=== PATIENT | female | born 1940 | race Caucasian/White ===

== ENCOUNTER → 2016-11-10 | Outpatient (CLI) | payer MEDICARE, OTHER ==
[~2016-11-10] MED LIST: ACIPHEX20 MG; ACTONEL PO; ADVAIR INH; ALDACTAZIDE; ALDACTAZIDE 25/1 TA1 PO; ALDACTAZIDE PO; ALDACTONE; ALDACTONE25 MG PO; ASPIRIN; ASPIRIN81 M1 PO; ASPIRIN81 M2 PO; ATENOLOL; BONIVA150 MG PO; CALCIUM 500 + D1 TAB; CALCIUM 5001 TAB PO; CALCIUM 600 +1 EAC5 PO; CARAFATE PO; DIAZEPAM; DIAZEPAM PO; LEVOTHROID88 MCG PO; LEVOTHYROXINE88 MCG PO; MIACALCIN4 ML; MULTI-DAY VITA1 EACH; MULTI-VITAMIN1 TAB; MULTIVITAMIN PO; NATURAL VITA400 UNI3 PO; NEXIUM PO; OS-CAL 500 + D500 MG PO; OYSTER CALCIUM500 MG PO; PRINIVIL20 M1 PO; PROTONIX PO; SYNTHROID; SYNTHROID88 MCG PO; TENORMIN50 MG PO; TRAMADOL HCL50 M1 PO; TRAMADOL HCL50 M2 PO; VALIUM10 MG PO; VIT E PO; VITAMIN D1000 UNI1 PO; VITAMIN D1000 UNIT PO; VITAMIN E15 U/0.3 M; VITAMIN E400 UNI1 PO; VYTORIN 10-40 M1 TAB PO; VYTORIN 10/40 T1 TAB; ZETIA PO
--- NOTE | ~2016-11-10 | MY10 ---
[facility] A Service of [facility] RADIOLOGY TEXT RESULTS PATIENT: GEOFFREY LYN LOCATION: [facility] : 36 UNIT #: [id number] AGE: [address]: Dahiana Antunez MD SEX: F ORDER DR: [id number] [facility] [address] [place], [place] [address] [id number] O MR#: [id number] Acc #: [id number] NAME: GEOFFREY LYN. : 1940 SEX: F STUDY DATE/TIME: 11/10/2016 8:49 UNIT: [facility] ROOM: STUDY DESCRIPTION: MY Mammogram Screen Uni Dig Rt Attending Physician: Dahiana Antunez M.D. Ordering Physician: Dahiana Antunez M.D. Primary Care Physician: Dahiana Antunez M.D. MEDICAL IMAGING REPORT This report is preliminary unless electronic signature is present EXAM Right screening mammogram, 11/10 INDICATION History of left mastectomy for breast cancer in 1989. No current complaints. FINDINGS Digital CC and MLO views of the right breast were obtained. Study is reviewed with an FDA-approved CAD device. Comparison is made with 11/09/2015, 09/21/2014, 09/04/2013, and 09/02/2012. Breast parenchyma shows scattered fibroglandular densities. No new masses or suspicious microcalcifications are seen. There is a stable benign nodule in the central right breast. IMPRESSION Benign mammogram. Followup in 1 year recommended. Patients over the age of 40 are entered into a reminder system with target due date for the next mammogram. A result letter will also be sent to the patient. BIRADS: 2 Benign Finding Dictated by... Abram Godlberg Jr., M.D. THIS IS AN ELECTRONICALLY VERIFIED REPORT Abram Goldberg Jr., M.D. at 11/10/2016 4:47 PM EVER/melissa TD: 11/10/2016 10:56 [facility] A Service of [facility] & [facility] RADIOLOGY TEXT RESULTS PATIENT: GEOFFREY LYN LOCATION: [facility] ACC #: [id number] : 36 UNIT #: [id number] AGE: [address]: Dahiana Antunez MD SEX: F ORDER DR: JOB #: [id number] MEDICAL IMAGING REPORT Page 1 of 1 COPY
== END | disposition home or self-care (01) ==
LOC: CMAM 08:08
DX: Z12.31 Encounter for screening mammogram for malignant neoplasm of breast (principal); Z85.3 Personal history of malignant neoplasm of breast; Z90.12 Acquired absence of left breast and nipple
CPT/HCPCS: G0202

== ENCOUNTER 2016-11-26 12:17 | Emergency (ER) | payer MEDICARE, OTHER ==
--- NOTE | ~2016-11-26 | EKG ---
PATIENT: GEOFFREY LYN UNIT #: [id number] Ventricular Rate: 86 BPM Atrial Rate: 86 BPM P-R Interval: 162 ms QRS Duration: 92 ms Q-T Interval: 392 ms QTC Calculation(Bezet): 469 ms P [place]: 24 degrees Calculated R [place]: 5 degrees Calculated T [place]: 36 degrees Diagnosis Line: Normal sinus rhythm Diagnosis Line: Normal ECG Diagnosis Line: When compared with ECG of 26-SEP-2012 17:28, Diagnosis Line: QT has lengthened Diagnosis Line: Confirmed by LAUREANO PARMAR MD ([id number]) on 11/29/2016 Diagnosis Line: 9:36:59 AM INTERPRETING MD: AGATA ISIDRO
--- NOTE | ~2016-11-26 | CR72 ---
[facility] A Service of [facility] & [facility] RADIOLOGY TEXT RESULTS PATIENT: GEOFFREY LYN LOCATION: SED : 36 UNIT #: [id number] AGE: [address]: Jarret Adams MD SEX: F ORDER DR: [id number] [place] [id number] E MR#: [id number] Acc #: [id number] NAME: GEOFFREY LYN : 1940 SEX: F STUDY DATE/TIME: 11/26/2016 13:05 UNIT: SED ROOM: STUDY DESCRIPTION: CR Chest Single View Portable Attending Physician: Jarret Adams M.D. Ordering Physician: Jarret Adams M.D. Primary Care Physician: Dahiana Antunez M.D. MEDICAL IMAGING REPORT This report is preliminary unless electronic signature is present. EXAM Portable chest 11/26/2016 HISTORY 76-year-old female with chest pain beginning today. COMPARISON Chest 09/26/2012 FINDINGS Frontal chest demonstrates clear lungs. No pleural effusion or pneumothorax. Heart size and mediastinum are within normal limits. Pulmonary vasculature unremarkable. IMPRESSION No acute cardiopulmonary findings. Dictated by... Thaddeus Brandon M.D. THIS IS AN ELECTRONICALLY VERIFIED REPORT Thaddeus Brandon M.D. at 11/27/2016 4:47 PM GURDEEP/ximena TD: 11/26/2016 15:51 JOB #: [id number] MEDICAL IMAGING REPORT Page 1 of 1
--- NOTE | ~2016-11-26 | CT2 ---
[facility] A Service of [facility] RADIOLOGY TEXT RESULTS PATIENT: GEOFFREY LYN LOCATION: SED : 36 UNIT #: [id number] AGE: [address]: Jarret Adams MD SEX: F ORDER DR: [id number] [address] [address] [id number] E MR#: [id number] Acc #: [id number] NAME: GEOFFREY LYN : 1940 SEX: F STUDY DATE/TIME: 11/26/2016 13:04 UNIT: SED ROOM: STUDY DESCRIPTION: CT Abd and Pelv W Cont Attending Physician: Jarret Adams M.D. Ordering Physician: Jarret Adams M.D. Primary Care Physician: Dahiana Antunez M.D. MEDICAL IMAGING REPORT This report is preliminary unless electronic signature is present. EXAM CT abdomen and pelvis with contrast 11/26/2016 HISTORY 76-year-old female with abdominal pain, nausea, and vomiting beginning today. COMPARISON None TECHNIQUE Helical scan performed through the abdomen and pelvis following administration of IV contrast. Coronal and sagittal reformatted images. This CT exam was performed with one or more of the following radiation dose reduction techniques: automatic exposure control, adjustment of mA and/or kV according to patient size, and iterative reconstruction. FINDINGS Visualized lung bases are unremarkable. Pmermaah-tu-ceasv hiatal hernia. The liver, spleen, pancreas, and left adrenal gland are within normal limits. There is a 1.9 cm right adrenal myelolipoma. Cholelithiasis is noted. Kidneys are unremarkable. Abdominal aorta normal in course and caliber without dissection. Small bowel is unremarkable without obstruction. Appendix surgically absent. Colon unremarkable. Uncomplicated sigmoid colonic diverticulosis. No free fluid or free air. Urinary bladder, uterus, and adnexa are unremarkable. No free pelvic fluid. No acute bony abnormality. Advanced right hip degenerative change. IMPRESSION [facility] A Service of [facility] RADIOLOGY TEXT RESULTS PATIENT: GEOFFREY LYN LOCATION: SED : 36 UNIT #: [id number] AGE: [address]: Jarret Adams MD SEX: F ORDER DR: 1. Cholelithiasis. 2. Status post appendectomy. 3. Iilzgscc-xq-dxdul hiatal hernia. 4. 1.9-cm right adrenal myelolipoma. 5. Uncomplicated sigmoid colonic diverticulosis. Dictated by... Thaddeus Brandon M.D. THIS IS AN ELECTRONICALLY VERIFIED REPORT Thaddeus Brandon M.D. at 11/27/2016 4:47 PM Mckayla TD: 11/26/2016 15:56 JOB #: [id number] MEDICAL IMAGING REPORT Page 1 of 1
[~2016-11-26 12:17] MED LIST changes: -ASPIRIN81 M2 PO; -CALCIUM 600 +1 EAC5 PO; -CARAFATE PO; -LEVOTHYROXINE88 MCG PO; -MULTI-DAY VITA1 EACH; -NATURAL VITA400 UNI3 PO; -OS-CAL 500 + D500 MG PO; -PRINIVIL20 M1 PO; -PROTONIX PO; -TENORMIN50 MG PO; -TRAMADOL HCL50 M1 PO; -VALIUM10 MG PO
[2016-11-26 12:33] LABS: BASOPHIL# 0.1 X10e3 (0-0.3); BASOPHIL% 0.7 % (0-2.5); EOSINOPHIL% 0.1 % (0.0-7.0); HEMATOCRIT 45.2 % (35.0-45.0); LYMPHOCYTE% 10.1 % (17.0-45.0); MEAN CELL VOLUME 89.7 FL (83-96); MEAN CORPUSCULAR HEMOGLOBIN 29.8 PG (28-34); MEAN CORPUSCULAR HGB CONC 33.2 g/dL (30-36); MEAN PLATELET VOLUME 8.1 FL (6.5-11.5); MONOCYTE# 0.3 X10e3 (0-1.0); MONOCYTE% 3.1 % (3.0-12.0); NEUTROPHIL# 8.4 X10e3 (1.5-7.1); PLATELET COUNT 221 X10e3 (140-420); RED BLOOD COUNT 5.04 X10e (3.90-5.30); RED CELL DISTRIBUTION WIDTH 13.8 % (11.0-15.5); WHITE BLOOD COUNT 9.8 X10e3 (4.0-10.5)
[2016-11-26 12:38] LABS: DIFF IND NO
[2016-11-26 12:45] LABS: ALBUMIN SERUM 4.1 g/dL (3.5-5.0); BILIRUBIN, DIRECT 0.2 mg/dL (0.0-0.2); BILIRUBIN,INDIRECT 0.4 mg/dL (0.0-0.9); BILIRUBIN,TOTAL 0.6 mg/dL (0.2-2.0); BUN/CREATININE RATIO 16.66; CALCIUM SERUM 9.4 mg/dL (8.4-10.2); CREATININE SERUM 0.9 mg/dL (0.6-1.4); GLOM FILT RATE Estimated 61.3 mL/min (>60); POTASSIUM 4.7 mmol/L (3.5-5.1); PROTEIN TOTAL SERUM 7.4 g/dL (6.0-8.3)
[2016-11-26 12:49] LABS: POC - CKMB 1.5 ng/mL (0.0-7.9); POC - TROPONIN <0.05 ng/mL (<=0.05)
[2016-12-19] MEDS ORDERED: OS-CAL 500 + D500 MG PO (13:52)
== END 2016-11-26 14:33 | disposition home or self-care (01) ==
LOC: SED 12:17
PROVIDERS: Emergency Medicine
DX: K80.70 Calculus of gallbladder and bile duct without cholecystitis without obstruction (principal); I10 Essential (primary) hypertension; E78.5 Hyperlipidemia, unspecified; K21.9 Gastro-esophageal reflux disease without esophagitis; Z90.89 Acquired absence of other organs; Z88.5 Allergy status to narcotic agent; Z79.82 Long term (current) use of aspirin; Z79.899 Other long term (current) drug therapy
CPT/HCPCS: 36415; 71010; 74177; 80048; 80076; 82150; 82553; 83690; 84484; 85025; 93005; 96361; 96374; 96375; 99284; J2270; J2405; Q9967

== ENCOUNTER → 2016-12-19 | Outpatient (CLI) | payer MEDICARE, OTHER ==
[~2016-12-19] MED LIST changes: +ASPIRIN81 M2 PO; +CALCIUM 600 +1 EAC5 PO; +CARAFATE PO; +LEVOTHYROXINE88 MCG PO; +MULTI-DAY VITA1 EACH; +NATURAL VITA400 UNI3 PO; +OS-CAL 500 + D500 MG PO; +PRINIVIL20 M1 PO; +PROTONIX PO; +TENORMIN50 MG PO; +TRAMADOL HCL50 M1 PO; +VALIUM10 MG PO
[2016-12-19 14:49] LABS: ALBUMIN SERUM 4.1 g/dL (3.5-5.0); BILIRUBIN,TOTAL 0.9 mg/dL (0.2-2.0); BUN/CREATININE RATIO 18.57; CALCIUM SERUM 9.4 mg/dL (8.4-10.2); CREATININE SERUM 0.7 mg/dL (0.6-1.4); POTASSIUM 4.6 mmol/L (3.5-5.1); PROTEIN TOTAL SERUM 6.6 g/dL (6.0-8.3)
== END | disposition home or self-care (01) ==
LOC: CAMB 13:00
PROVIDERS: Surgery
DX: Z01.812 Encounter for preprocedural laboratory examination (principal); K80.20 Calculus of gallbladder without cholecystitis without obstruction
CPT/HCPCS: 36415; 80053

== ENCOUNTER 2016-12-26 07:09 | Day surgery (SDC) | payer MEDICARE, OTHER ==
--- NOTE | ~2016-12-26 | OR ---
Unit #: [id number] #: [id number] Patient: GEOFFREY LYN [id number] [address] [place], [place] [address] [id number] MR#: [id number] NAME: GEOFFREY LYN ROOM: Date of Procedure: 12/26/2016 Admission Date: 12/26/2016 Surgeon: Darvin Ivey Jr., M.D. : 1940 Attending Physician: Darvin Ivey Jr., M.D. Primary Care Physician: Dahiana Antunez M.D. OPERATIVE REPORT INDICATIONS FOR PROCEDURE The patient is a 76-year-old white female who has been having intermittent mid epigastric and right upper quadrant abdominal pain with associated nausea occasionally. She has been worked up and noted to have evidence of gallstones with probable chronic cholecystitis. Preoperative liver function tests are normal. She was brought to the operating room at this time at her request for laparoscopic cholecystectomy. She understands the procedure including the risks, including that of infection, common duct injury, biliary leak and bleeding, and intra-abdominal organ injury, and consents. PREOPERATIVE DIAGNOSES Chronic cholecystitis with cholelithiasis. POSTOPERATIVE DIAGNOSES Chronic cholecystitis with cholelithiasis, also noting some acute cholecystitis. ANESTHESIA General with endotracheal intubation and 0.5% Marcaine with epinephrine locally. PROCEDURE PERFORMED Laparoscopic lysis of adhesions with laparoscopic cholecystectomy. DESCRIPTION OF PROCEDURE The patient was positioned in supine position. After being anesthetized and intubated, he was prepped and draped in routine fashion for laparoscopic cholecystectomy. A small 1-cm incision was made in the supraumbilical area. This was carried down to the fascia. The fascia was lifted between 2 Rachel clamps, and a Veress needle was introduced into the abdomen. The abdomen was then inflated with CO2 gas. A 5-mm port was introduced into the abdomen followed by the camera. There was no evidence of any injury related to introduction of the Veress needle or the port. Brief intra-abdominal exploration was carried out. The patient was noted to have some adhesions in the right lower quadrant of the abdominal wall and also a right inguinal hernia. There was no evidence of hernia on the left. Liver was slightly globular. The gallbladder appeared chronically inflamed. Two 5-mm ports were placed laterally and an 11-mm port just to the right of the upper midline. The gallbladder was lifted. There were multiple filmy adhesions of the omentum to the gallbladder as well as thicker adhesions. These were taken down with both sharp and blunt Unit #: [id number] #: [id number] Patient: GEOFFREY LYN dissection, requiring approximately 15 minutes. After this was completed, dissection was carried out in the triangle of Calot, cystic duct was isolated. Approximately 2 mm in diameter was hemoclipped x4 and divided at least a centimeter from its junction with the common duct. The common duct appeared normal. The cystic artery was identified, hemoclipped x3, and divided. The gallbladder was then removed from its bed with the hook cautery using a current of 20 to 25, and there were significant inflammatory changes in the gallbladder bed itself. After the gallbladder was released, it was placed in the EndoCatch bag and brought out through the port site. The port was replaced. Subhepatic space was checked. There was a small amount of oozing from the gallbladder bed. This was all controlled with the Bovie cautery. There was still slight oozing, and this was then packed with Surgicel. The area was observed for 5 minutes with no evidence of any major leakage, but it was felt the drain was required, and a 10-mm Romel-Arriola drain was placed in the deeper aspect of the subhepatic space and brought out through the lateral port site area. After this was completed, the drain was sutured to the skin with 2-0 silk suture. The right upper quadrant was irrigated and after hemostasis achieved again with the hook cautery. The sponge placed intraabdominal was then directly taken out. The sponge count was correct x3. The ports were then removed. There was no evidence of any bleeding from the port sites. CO2 was expressed from the abdomen. The patient had no significant bleeding from the port sites. The fascia in the larger port site was approximated with the neoClose technique as well as a inhhzv-tr-yddou 0 Vicryl suture. The wounds were again irrigated and after hemostasis achieved with Bovie cautery, skin edges were approximated with stainless-steel skin clips with skin stapling device. Sterile dressings were applied externally. Estimated blood loss less than 100 mL. The patient received less than 1500 mL crystalloid solution during the procedure. Sponges and instrument counts were correct x3. There was one 10-mm Romel-Arriola drain used in the subhepatic space, and no complications. The patient was taken to the recovery room with stable vital signs in satisfactory condition. Dictated by... Darvin Ivey Jr., M.D. JMB/bobby TD: 12/27/2016 06:11 JOB #: [id number] OPERATIVE REPORT Page 1 of 1 X Darvin Ivey MD X PROCEDURE OPERATIVE NOTE
[~2016-12-26 07:09] MED LIST changes: -ASPIRIN81 M2 PO; -CALCIUM 600 +1 EAC5 PO; -CARAFATE PO; -LEVOTHYROXINE88 MCG PO; -MULTI-DAY VITA1 EACH; -NATURAL VITA400 UNI3 PO; -PRINIVIL20 M1 PO; -PROTONIX PO; -TENORMIN50 MG PO; -TRAMADOL HCL50 M1 PO; -VALIUM10 MG PO
[2016-12-26] MEDS ORDERED: LEVOTHYROXINE88 MCG PO (13:49)
[2016-12-26] MEDS ORDERED: ZETIA PO (13:50)
[2016-12-26] MEDS ORDERED: PROTONIX PO (13:50)
[2016-12-26] MEDS ORDERED: TRAMADOL HCL50 M1 PO (13:50)
[2016-12-26] MEDS ORDERED: VALIUM10 MG PO (13:50)
[2016-12-26] MEDS ORDERED: CALCIUM 600 +1 EAC5 PO (13:52)
[2016-12-26] MEDS ORDERED: NATURAL VITA400 UNI3 PO (13:53)
[2016-12-26] MEDS ORDERED: PRINIVIL20 M1 PO (15:11)
[2016-12-26] MEDS ORDERED: MULTI-DAY VITA1 EACH (15:12)
[2016-12-26] MEDS ORDERED: TENORMIN50 MG PO (17:21)
[2016-12-26] MEDS ORDERED: ASPIRIN81 M2 PO (17:23)
[2016-12-26] MEDS ORDERED: CARAFATE PO (17:23)
== END 2016-12-26 11:54 | disposition home or self-care (01) ==
LOC: CSUR 07:09 → CPACUOF 10:52 → CSUR 10:52 → CPACUOF 10:52 → CSUR 11:54
DX: K80.10 Calculus of gallbladder with chronic cholecystitis without obstruction (principal); K66.0 Peritoneal adhesions (postprocedural) (postinfection); K21.9 Gastro-esophageal reflux disease without esophagitis; E03.9 Hypothyroidism, unspecified; M19.90 Unspecified osteoarthritis, unspecified site; I10 Essential (primary) hypertension; E78.00 Pure hypercholesterolemia, unspecified; M81.0 Age-related osteoporosis without current pathological fracture; Z87.19 Personal history of other diseases of the digestive system; Z85.3 Personal history of malignant neoplasm of breast; Z88.5 Allergy status to narcotic agent; Z79.82 Long term (current) use of aspirin; Z79.891 Long term (current) use of opiate analgesic; Z79.899 Other long term (current) drug therapy; Z90.49 Acquired absence of other specified parts of digestive tract; Z90.12 Acquired absence of left breast and nipple; Z98.890 Other specified postprocedural states
CPT/HCPCS: 88304; J0690; J1100; J1650; J1885; J2270; J2405; J2710; J2765